=== PATIENT | female | born 1945 | race Caucasian/White ===

== ENCOUNTER 2023-07-26 17:44 | Emergency (ER) | payer MEDICARE, OTHER, SELFPAY ==
[2023-07-26 17:52] VITALS: BP 194/88; PULSE 56; RESP 17; TEMP 36.6; O2SAT 98; BMI 25.7
--- NOTE | 2023-07-26 18:01 | DI.RAD.S_ITS ---
PROCEDURE: XR CHEST 1V INDICATIONS: chest pain TECHNIQUE: One view of the chest was acquired. COMPARISON: None. FINDINGS: Surgical changes and devices: None. Lungs and pleura: Lungs are clear. No pleural effusions or pneumothorax. Mediastinum: Mediastinal contours appear normal. Heart size is normal. Bones and chest wall: No suspicious bony lesions. Overlying soft tissues appear unremarkable. Status post right shoulder replacement. IMPRESSION: Portable chest within normal limits for age. Dictated by: Curly Ordoñez M.D. on 07/26/2023 at 18:29 Approved by: Curly Ordoñez M.D. on 07/26/2023 at 18:30
[2023-07-26 19:20] LABS: Add Manual Diff / Slide Review NO; Basophils Absolute Auto 0 /uL (0-100); Basophils Percent Auto 0.6 % (0-2); Eosinophils Absolute Auto 300 /uL (0-450); Eosinophils Percent Auto 3.9 % (2-4); Hematocrit 40.4 % (36-46); Hemoglobin 13.6 g/dL (12.0-16.0); Lymphocytes Absolute Auto 1900 /uL (1100-4500); Mean Corpuscular HGB Conc 33.7 % (30-36); Mean Corpuscular Hemoglobin 31.4 PG (26-34); Mean Corpuscular Volume 93.3 fL (80-100); Monocytes Absolute Auto 500 /uL (0-900); Monocytes Percent Auto 7.8 % (3-14); Neutrophils Absolute Auto 3800 /uL (1500-7000); Neutrophils Percent Auto 58.7 % (50-75); Platelet Count 223 X10^3/uL (150-400); Red Blood Cell Count 4.34 X10^6/uL (4.0-5.2); Red Cell Distribution Width 13.9 % (11.6-14.8); White Blood Cell Count 6.4 X10^3/uL (4.5-11.0)
[2023-07-26 19:24] LABS: Prothrombin Time 11.5 SECONDS (10.1-12.7)
[2023-07-26 19:26] LABS: PTT Partial Thromboplastin Tim 30 SECONDS (26-36)
[2023-07-26 19:29] LABS: Alanine Aminotransferase 23 IU/L (<35); Albumin 4.5 g/dL (3.5-5.0); Albumin Globulin Ratio 1.3 (1.0-2.8); Alkaline Phosphatase 47 U/L (38-126); Aspartate Aminotransferase 28 IU/L (14-36); BUN Creatinine Ratio 21.9 (6-22); Bilirubin Total 0.7 mg/dL (0.2-1.3); Blood Urea Nitrogen 14 mg/dL (7-17); Calcium 8.8 mg/dL (8.4-10.2); Carbon Dioxide 30 mmol/L (22-32); Chloride 102 mmol/L (98-107); Creatine Kinase 42 U/L (30-135); Estimated Glomerular Filt Rate > 60 mL/min (>60); Globulin 3.5 g/dL (1.7-4.1); Glucose 106 mg/dL (80-110); HEMOLYSIS < 15 (0-50); Lipase 56 U/L (23-300); Magnesium 2.1 mg/dL (1.6-2.3); Sodium 141 mmol/L (137-145)
[2023-07-26 19:40] LABS: Troponin I < 0.012 ng/mL (0.01-0.034)
[2023-07-26 20:32] VITALS: BP 170/74; PULSE 57; RESP 14; O2SAT 95
[2023-07-26 21:30] VITALS: BP 161/81; PULSE 65; RESP 23; O2SAT 96
--- NOTE | 2023-07-26 21:57 | ED_ITS ---
HPI - General Adult General Chief complaint: Hypertension Stated complaint: Heart issues, High BP Time Seen by Provider: 07/26/23 21:36 Source: patient Mode of arrival: Ambulatory History of Present Illness HPI narrative: 77-year-old female. Has a history of high blood pressure. States she takes her blood pressure medications at noon and at midnight every day. States that on the day of arrival she woke up in the morning at approximately 1100 hours. She took her blood pressure. It was slightly elevated above her baseline. She did take her noon medications. She retook her blood pressure a little while later and continued to be elevated. She took an extra dose of her medication and then retook her blood pressure and it was still increasing. She denies any headache or chest pain or shortness of breath or lower extremity swelling. Related Data Home Medications Medication Instructions Recorded Confirmed amitriptyline 25 mg tablet 25 mg PO ONCE PM 07/26/23 07/26/23 hydrochlorothiazide 25 mg tablet 25 mg PO QAM 07/26/23 07/26/23 metoprolol tartrate 50 mg tablet 50 mg PO BID 07/26/23 07/26/23 simvastatin 40 mg tablet 40 mg PO ONCE PM 07/26/23 07/26/23 Allergies Allergy/AdvReac Type Severity Reaction Status Date / Time morphine AdvReac Dizziness Verified 07/26/23 17:52 Review of Systems Constitutional Constitutional: Reports system reviewed and no additional complaints, except as documented Cardiovascular Cardiovascular: Reports system reviewed and no additional complaints, except as documented Respiratory Respiratory: Reports system reviewed and no additional complaints, except as documented Gastrointestinal Gastrointestinal: Reports system reviewed and no additional complaints, except as documented Integumentary/Breasts Skin/Breast: Reports system reviewed and no additional complaints, except as documented Hematologic/Lymphatic On Anticoagulants: No Patient History Medical History High cholesterol Hypertension Social History Smoking Status: Never smoker Smoking Status: Never smoker alcohol intake frequency: holidays/special occasions only Substance Use Type: does not use Exam Initial Vital Signs Initial Vital Signs: Vital Signs Temperature 97.8 F 07/26/23 17:52 Pulse Rate 56 L 07/26/23 17:52 Respiratory Rate 17 07/26/23 17:52 Blood Pressure 194/88 H 07/26/23 17:52 Pulse Oximetry 98 07/26/23 17:52 Oxygen Delivery Method Room Air 07/26/23 17:52 [facility] Head: normal to inspection and normocephalic Resp Effort & Inspection: normal respiratory effort Auscultation: clear to auscultation bilaterally Cardio Rate: regular rate Rhythm: regular rhythm Skin General: no rashes or lesions noted Neuro General: patient alert, patient awake, patient oriented x3 and moves all extremities Extrem General: normal to inspection and capillary refill normal Course Orders Ordered: Discontinued Medications Aspirin (Aspirin 81 Mg Chew Tab) 324 mg PO NOW ONE Stop: 07/26/23 18:02 Last Admin: 07/26/23 20:20 Dose: Not Given Documented By: SINDHU Vital Signs Vital signs: Vital Signs - 8 hr 07/26/23 20:32 07/26/23 22:05 07/26/23 21:30 Pulse Rate 57 L 60 65 Respiratory Rate 14 16 23 Blood Pressure 170/74 H 159/71 H 161/81 H Pulse Oximetry 95 98 96 Oxygen Delivery Method Room Air Room Air Room Air Medical Decision Making Lab Data Lab results reviewed: Yes I reviewed the patient's lab results. 07/26/23 19:05 07/26/23 19:05 Labs: Lab Results 07/26/23 07/26/23 07/26/23 Range/Units 19:05 19:05 19:05 WBC 6.4 (4.5-11.0) X10^3/uL RBC 4.34 (4.0-5.2) X10^6/uL Hgb 13.6 (12.0-16.0) g/dL Hct 40.4 (36-46) % MCV 93.3 (80-100) fL MCH 31.4 (26-34) PG MCHC 33.7 (30-36) % RDW 13.9 (11.6-14.8) % Plt Count 223 (150-400) X10^3/uL Neut % (Auto) 58.7 (50-75) % Lymph % (Auto) 29.0 (25-40) % [place] % (Auto) 7.8 (3-14) % Eos % (Auto) 3.9 (2-4) % Baso % (Auto) 0.6 (0-2) % Neut # (Auto) 3800 (5292-6534) /uL Lymph # (Auto) 1900 (7650-2805) /uL [place] # (Auto) 500 (0-900) /uL Eos # (Auto) 300 (0-450) /uL Baso # (Auto) 0 (0-100) /uL PT 11.5 (10.1-12.7) SECONDS INR 1.0 (0.9-1.3) APTT 30 (26-36) SECONDS Sodium 141 (137-145) mmol/L Potassium 4.0 (3.4-5.1) mmol/L Chloride 102 (98-107) mmol/L Carbon Dioxide 30 (22-32) mmol/L BUN 14 (7-17) mg/dL Creatinine 0.64 (0.52-1.04) mg/dL Estimated GFR > 60 (>60) mL/min BUN/Creatinine Ratio 21.9 (6-22) Glucose 106 (80-110) mg/dL Calcium 8.8 (8.4-10.2) mg/dL Magnesium 2.1 (1.6-2.3) mg/dL Total Bilirubin 0.7 (0.2-1.3) mg/dL AST 28 (14-36) IU/L ALT 23 (<35) IU/L Alkaline Phosphatase 47 (38-126) U/L Total Creatine Kinase 42 (30-135) U/L Troponin I < 0.012 (0.01-0.034) ng/mL Total Protein 8.0 (6.3-8.2) g/dL Albumin 4.5 (3.5-5.0) g/dL Globulin 3.5 (1.7-4.1) g/dL Albumin/Globulin Ratio 1.3 (1.0-2.8) Lipase 56 (23-300) U/L Imaging Data Chest x-ray: Radiologist's Impression: PROCEDURE:? XR CHEST 1V ? INDICATIONS:? chest pain ? TECHNIQUE:? One view of the chest was acquired.? ? COMPARISON:? None. ? FINDINGS:? ? Surgical changes and devices:? None.? ? Lungs and pleura:? Lungs are clear.? No pleural effusions or pneumothorax.? ? Mediastinum:? Mediastinal contours appear normal.? Heart size is normal.? ? Bones and chest wall:? No suspicious bony lesions.? Overlying soft tissues appear unremarkable.? Status post right shoulder replacement. ? ? IMPRESSION:? Portable chest within normal limits for age. ? ECG Data Attestation: I personally reviewed and interpreted this ECG as follows: Interpretation: Sinus bradycardia Ventricular rate of 55 Inverted T-waves lead 2 3 AVF V1 through V6 Normal axis Today's EKG very similar to EKG dated 07/29/2022 which states this EKG is similar to 09/27/2021 MDM Narrative Medical decision making narrative: Patient is somewhat hypertensive today however she seems to be relatively asymptomatic from this. She has taken her blood pressure medications today. Her EKG does show inverted T-waves but comparison to prior EKGs and is unchanged from 2021 and then again from 2020. Had a long discussion with her regarding her high blood pressure. Low suspicion for ACS, CHF, intracranial hemorrhage. Will discharge patient home with instructions to continue to check her blood pressure at home. We will not make any changes to her pressure medications for now although she was informed that if her blood pressure does remain elevated that her primary doctor may need to make adjustments in his medications. He was given return precautions and follow-up instructions. She expressed understanding and agreement. Discharge Plan Departure Patient Disposition: Home Clinical Impression: Hypertension Instructions: DI for High Blood Pressure Activity Restrictions/Additional Instructions: I recommend that you continue to take all of your medications as directed. Continue to take your blood pressures at home like we discussed. Contact your primary doctor for a follow-up. Return to the emergency department for new or worsening symptoms. Prescriptions: No Action simvastatin 40 mg tablet 40 mg PO ONCE PM amitriptyline 25 mg tablet 25 mg PO ONCE PM metoprolol tartrate 50 mg tablet 50 mg PO BID hydrochlorothiazide 25 mg tablet 25 mg PO QAM Referrals: Avril Soto ARNP [Primary Care Provider] - Stand Alone Forms: Patient Portal/API
[2023-07-26 22:05] VITALS: BP 159/71; PULSE 60; RESP 16; O2SAT 98
== END 2023-07-26 22:08 | disposition home or self-care (01) ==
PROVIDERS: Emergency Provider Emergency Medicine; PCP Nurse Practitioner Family
DX: I10 Essential (primary) hypertension (principal); R07.9 Chest pain, unspecified
CPT/HCPCS: 36415; 71045; 80053; 82550; 83690; 83735; 84484; 85025; 85610; 85730; 93005; 93010; 99284

== ENCOUNTER 2024-04-27 09:03 | Day surgery (SDC) | payer MEDICARE, OTHER, SELFPAY ==
--- NOTE | 2024-04-27 | PATH_ITS ---
[facility] Accession Number: [id number] No. of containers..04 Tissue . 01 Material submitted: . PART A: duodenum - DUODENUM BIOPSY PART B: stomach - ANTRUM BIOPSY PART C: stomach - GASTRIC BODY BIOPSY PART D: esophagus, E-G Junction - GE J BIOPSY . 01 Diagnosis: Part A: DUODENUM BIOPSY: Duodenal mucosa with no diagnostic alterations. No active inflammation and no evidence of celiac disease. . Part B: ANTRUM BIOPSY: Gastric mucosa with mild chronic inflammation. No Helicobacter organisms identified. No intestinal metaplasia, dysplasia, or malignancy identified. . Part C: GASTRIC BODY BIOPSY: Gastric mucosa with mild chronic inflammation. No Helicobacter organisms identified. No intestinal metaplasia, dysplasia, or malignancy identified. . 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 No dysplasia identified. See comment. . 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 Correlation with the endoscopic appearance is recommended for further evaluation. [facility] 05/05/2024 1052 Local . 01 Comment: Parts B, C: An immunohistochemical stain was performed to evaluate for Helicobacter organisms and is negative. The control stains appropriately. * This test was developed and its performance characteristics determined by [facility]. It has not been cleared or approved by the U.S. Food and Drug Administration. The FDA has determined that such clearance or approval is not necessary. This test is used for clinical purposes. It should not be regarded as investigational or for research. . 01 Electronically signed: . Chong Putnam MD, Pathologist NPI- [id number] . 01 Gross description: . A. Received in formalin with two patient identifiers and duodenum biopsy, are multiple hernandez soft tissue fragments aggregating to 1.0 x 0.5 x 0.1 cm. Filtered and submitted entirely in A1. . B. Received in formalin with two patient identifiers and antrum biopsy, is a single hernandez soft tissue fragment, 0.4 cm in greatest dimension. Submitted entirely in B1. . C. Received in formalin with two patient identifiers and gastric body, are two hernandez soft tissue fragments, 0.4 to 0.5 cm in greatest dimension. Submitted entirely in C1. . D. Received in formalin with two patient identifiers and GEJ biopsy, is a single hernandez soft tissue fragment, 0.5 cm in greatest dimension. Submitted entirely in D1. ([id number]) /MRV 05/05/2024 1052 Local . 01 Pathologist provided ICD-10: K22.70, K29.50 . 01 CPT . 632602, 450027, 924350, 660051, [id number] Specimen Comment: A courtesy copy of this report has been sent to [phone] Performed at: [address] [facility] [address], [place], [place] [id number] MD Chong Putnam MD Phone: [phone]
[2024-04-27 09:25] VITALS: BP 131/72; PULSE 55; RESP 17; TEMP 36.5; O2SAT 95
--- NOTE | 2024-04-27 09:46 | PM.HP.1 ---
History of Present Illness History of Present Illness Date Patient Seen: 04/27/24 Time Patient Seen: 09:46 Chief complaint: EGD w/poss bx Narrative: I reviewed the recent note by Rj Maza. No significant changes. Since going off PPI she feels like she is in withdrawal and starting to have symptoms again. When she is on PPI she seems to do reasonably well. She abstains from gluten and uses probiotics to help control her tendency towards loose stools. [facility] Medical History High cholesterol Hypertension Social History Smoking Status: Never smoker alcohol intake: current Meds Home Medications and Allergies Home Medications Medication Instructions Recorded Confirmed Type amitriptyline 25 mg tablet 25 mg PO ONCE PM 07/26/23 04/27/24 History hydrochlorothiazide 25 mg tablet 25 mg PO QAM 07/26/23 04/27/24 History metoprolol tartrate 50 mg tablet 50 mg PO BID 07/26/23 04/27/24 History simvastatin 40 mg tablet 40 mg PO ONCE PM 07/26/23 04/27/24 History Allergies Allergy/AdvReac Type Severity Reaction Status Date / Time morphine AdvReac Dizziness Verified 04/27/24 09:17 Review of Systems Review of Systems ROS: Yes All systems reviewed with the patient and are negative except as otherwise documented Exam Vital Signs (past 8 hours): - 04/27/24 09:25 Temperature 97.7 F Pulse Rate 55 L Respiratory Rate 17 Blood Pressure 131/72 Pulse Oximetry 95 Oxygen Delivery Method Room Air Oxygen Delivery Method Room Air Const General: cooperative HENMT Head: normal to inspection Eyes General: appearance normal, both eyes and all related structures Neck Neck: normal visual inspection Chest Chest: normal inspection of the chest Resp Effort & Inspection: normal respiratory effort Cardio Rate: regular rate GI Inspection: normal to inspection Skin General: no rashes or lesions noted Neuro General: patient alert and patient awake Extrem General: normal to inspection and no pedal edema Psych Appearance: grossly normal Assessment & Plan Assessment & Plan narrative: This is a 78-year-old female with symptoms of abdominal pain, known hiatal hernia, reflux, tendency towards loose stools. Diagnostic EGD is pursued today.
--- NOTE | 2024-04-27 09:51 | PM.PREOP ---
Pre-operative Note Interval Note History & Physical reviewed/Exam performed by Physician: Yes Changes to H&P: No ASA Class (for procedural sedation): II
--- NOTE | 2024-04-27 10:06 | PM.OP.EGD ---
Operative Date/Time/Diagnoses Date of procedure: 04/27/24 Time of procedure: 10:06 Pre-op diagnosis: GERD, abdominal pain, diarrhea. Post-op diagnosis: same Procedure & Clinicians Study performed: EGD with biopsies Same procedure as scheduled: Yes Indications: GERD, abdominal pain, diarrhea. Surgeon: Alex Huang Procedure Notes SCOAP/Timeout: Done Procedure in detail: After the risks and benefits were explained, written and verbal informed consent was obtained. The patient was brought into the procedure room and placed into the left lateral decubitus position. Please see anesthesia notes for sedation details. The scope was introduced into the mouth through the bite block and advanced under direct visualization to the 2nd portion of the duodenum. The scope was slowly withdrawn carefully examining the mucosa for any defects or lesions. Retroflexed views were accomplished in the stomach. The stomach was decompressed, the scope was then removed from the patient who tolerated the procedure well. Sedation minutes: 10 Complications: none Impression: 1. Duodenal: There were a few patchy areas of erythema in the duodenal bulb but no erosions no ulceration no mass lesions. Random D2 biopsies were taken in light of her history of gluten intolerance. 2. Stomach: The patient had a fairly diffuse mild to moderate gastropathy characterized by a snake skin appearance to the mucosa more proximally. Biopsies were taken from the antrum and then from the body and submitted separately for both histopathology and H pylori exclusion. Retroflexed views of the LES were rather unremarkable. Hill valve grade 1 was noted. 3. Esophagus: The squamocolumnar junction generally correlated with the top of the gastric folds. The Z-line was slightly variable and as such, I elected to take a biopsy to exclude specialized intestinal metaplasia. There was no evidence of any active erosive esophagitis at this time. No stricture no mass lesion throughout the esophagus. There was only a very subtle perhaps 1-2 cm sliding hiatal hernia noted. Endoscopic diagnosis 1. Subtle sliding hiatal hernia 2. Variable Z-line 3. Gastropathy Post-procedure Plan for aftercare: 1. Await histology. 2. Continue anti-reflux therapy to control symptoms. Disposition: PACU
== END 2024-04-27 10:50 | disposition home or self-care (01) ==
PROVIDERS: PCP Nurse Practitioner Family; Referring Provider Internal Medicine Gastroenterology; Visit Provider Internal Medicine Gastroenterology
PROC: 0DJ08ZZ Inspection of Upper Intestinal Tract, Via Natural or Artificial Opening Endoscopic (ICD-10-PCS; CPT 43239; principal; 2024-04-27 10:00)
DX: K21.9 Gastro-esophageal reflux disease without esophagitis (principal); R10.9 Unspecified abdominal pain; R19.7 Diarrhea, unspecified; K31.9 Disease of stomach and duodenum, unspecified; K44.9 Diaphragmatic hernia without obstruction or gangrene; K22.70 Barrett's esophagus without dysplasia; K29.50 Unspecified chronic gastritis without bleeding
CPT/HCPCS: 43239